=== PATIENT | female | born 1975 | race African-American/Black ===

== ENCOUNTER 2017-04-06 08:10 | Emergency (ER) | payer MEDICAID ==
[~2017-04-06] VITALS: Ht 149.9 cm; Wt 70.0 kg
[~2017-04-06 08:10] MED LIST: ALBU2.5V13 IH; HYDR25TA PO
[2017-04-06] MEDS ORDERED: PREDNISONE 20MG TABLET PO STA (09:01)
[2017-04-06] MEDS ORDERED: SODIUM CHLORIDE 0.9% 1,000 ML IV ONE (09:01)
[2017-04-06] MEDS ORDERED: IPRATROPIUM/ALBUTEROL 0.5-3(2.5)MG/3ML NEB ONE (09:15)
[2017-04-06] MEDS ORDERED: IPRATROPIUM/ALBUTEROL 0.5-3(2.5)MG/3ML NEB HHN ONE (09:15)
[2017-04-06 09:18] LABS: EOSINOPHILS % 3.4 % (0.0-5.0); HEMATOCRIT. 30.4 % (36.0-48.0); HEMOGLOBIN. 9.6 g/dL (12.0-16.0); LYMPHOCYTES % 23.8 % (20.0-50.0); MEAN CORPUSCULAR HEMOGLOBIN 23.4 pg (28.0-32.0); MEAN CORPUSCULAR VOLUME 74.2 fL (81.0-99.0); MONOCYTES % 6.9 % (2.0-8.0); NEUTROPHILS % 64.9 % (40.0-76.0); PLATELET 249 x1000/uL (130-400); RED CELL DISTRIBUTION WIDTH 15.3 % (11.6-14.6)
[2017-04-06 09:26] LABS: INR 1.1; PARTIAL THROMBOPLASTIN TIME 28.7 sec (24.0-34.0)
[2017-04-06 09:28] LABS: CARBON DIOXIDE 28 mEq/L (21-32); CHLORIDE 104 mEq/L (98-107)
[2017-04-06 09:34] LABS: TROPONIN I < 0.02 ng/mL (0.00-0.04)
[2017-04-06 10:41] LABS: CLARITY URINE CLEAR (CLEAR); COLOR URINE YELLOW (YELLOW); GLUCOSE URINE NEGATIVE (NEGATIVE); KETONES URINE NEGATIVE (NEGATIVE); LEUKOCYTE ESTERASE URINE NEGATIVE (NEGATIVE); NITRITE URINE NEGATIVE (NEGATIVE); OCCULT BLOOD URINE NEGATIVE (NEGATIVE); PROTEIN URINE NEGATIVE (NEGATIVE); SPECIFIC GRAVITY URINE 1.008 (1.005-1.030); UROBILINOGEN URINE 0.2 E.U./dL (0.2-1.0)
[2017-04-06 11:28] VITALS: BP 119/82
== END 2017-04-06 11:32 | disposition home or self-care (01) ==
LOC: ER 08:36 → CANBEDREQ 16:16
DX: J45.901 Unspecified asthma with (acute) exacerbation (principal); I10 Essential (primary) hypertension; F12.10 Cannabis abuse, uncomplicated; Z88.0 Allergy status to penicillin
CPT/HCPCS: 36415; 71010; 80053; 81003; 81025; 83880; 84484; 85025; 85610; 85730; 93005; 94640; 96360; 96361; 99285; J7030; J7512; Z7610; J7620

== ENCOUNTER 2018-04-25 11:36 | Emergency (ER) | payer MEDICAID ==
[~2018-04-25] VITALS: Ht 160 cm; Wt 65.0 kg
[2018-04-25] MEDS ORDERED: PREDNISOLONE ACETATE 1% OPHTH DROPS 1ML RIGHTEYE STA (12:09)
[2018-04-25] MEDS ORDERED: CIPROFLOXACIN 0.3% OPHTH SOLN 2.5ML RIGHTEYE ONE (12:15)
[2018-04-25] MEDS ORDERED: HYDROCHLOROTHIAZIDE 25MG TABLET PO ONE (12:45)
[2018-04-25 14:37] VITALS: BP 147/103
== END 2018-04-25 14:40 | disposition home or self-care (01) ==
LOC: ER 11:36
DX: H10.211 Acute toxic conjunctivitis, right eye (principal); H11.421 Conjunctival edema, right eye; I10 Essential (primary) hypertension; J45.909 Unspecified asthma, uncomplicated; F12.10 Cannabis abuse, uncomplicated; Z88.0 Allergy status to penicillin
CPT/HCPCS: 99284; Z7610

== ENCOUNTER 2018-11-08 02:08 | Emergency (ER) | payer MEDICAID ==
[~2018-11-08] VITALS: Ht 149.9 cm; Wt 73.0 kg
[~2018-11-08 02:08] MED LIST changes: -HYDR25TA PO
[2018-11-08 06:09] VITALS: BP 111/71
== END 2018-11-08 06:15 | disposition home or self-care (01) ==
LOC: ER 02:17
DX: T78.1XXA Other adverse food reactions, not elsewhere classified, initial encounter (principal); J45.909 Unspecified asthma, uncomplicated; I10 Essential (primary) hypertension; Z90.710 Acquired absence of both cervix and uterus; Z88.0 Allergy status to penicillin; Z79.899 Other long term (current) drug therapy; X58.XXXA Exposure to other specified factors, initial encounter
CPT/HCPCS: 99283

== ENCOUNTER 2019-08-04 09:30 | Emergency (ER) | payer MEDICAID ==
[~2019-08-04] VITALS: Ht 149.9 cm; Wt 81.0 kg
[2019-08-04] MEDS ORDERED: KETOROLAC 60MG/2ML VIAL IM STA (10:48)
[2019-08-04] MEDS ORDERED: CYCLOBENZAPRINE 10MG TABLET PO ONE (11:00)
[2019-08-04 12:35] VITALS: BP 150/98
== END 2019-08-04 12:55 | disposition home or self-care (01) ==
LOC: ER 09:30
DX: M54.12 Radiculopathy, cervical region (principal); I10 Essential (primary) hypertension; J45.909 Unspecified asthma, uncomplicated; F12.10 Cannabis abuse, uncomplicated; Z90.710 Acquired absence of both cervix and uterus; Z88.0 Allergy status to penicillin
CPT/HCPCS: 72040; 73562; 96372; 99283; J1885; Z7610